=== PATIENT | male | born 1995 | race Caucasian/White ===

== ENCOUNTER 2017-11-12 21:03 | Emergency (ER) | payer SELFPAY ==
[2017-11-12] MEDS ORDERED: HYDROcod/ACET 5/325 Prepack 6 PO STA (21:23)
[2017-11-12] MEDS ORDERED: HYDROcod/ACETAM 5/325 MG TABLET PO STA (21:23)
--- NOTE | 2017-11-12 21:27 | ED Physician Documentation ---
History of Present Illness - Stated complaint Stated Complaint: BLOOD EAR/RINGING - Chief complaint Chief Complaint: Heent - History obtained from History obtained from: Patient, Family (mom) - History of Present Illness Timing: Other (He fell 5 days ago at a restaurant, slipped and twisted his ankle and then came down on his knee and his head on the sink going down. He was seen at a hospital in that area, [facility]. Per him he had an x- ray of his knee, ankle, and a CAT scan of his head with negative findings. He has persistent dizziness, confusion, headaches, and significant pain in the right leg. He was not prescribed any pain medication and is mostly requesting that.) Review of Systems Constitutional: denies: Fever, Chills Ears: reports: Drainage/discharge (With some blood a few days ago from the right ). denies: Ear pain Nose: denies: Rhinorrhea / runny nose, Congestion Throat: denies: Sore throat Cardiac: denies: Chest pain / pressure, Palpitations Respiratory: denies: Dyspnea, Cough PD PAST MEDICAL HISTORY - Past Medical History Past Medical History: No Cardiovascular: None Respiratory: None Neuro: None Endocrine/Autoimmune: None GI: None : None HEENT: None Psych: None Musculoskeletal: None Derm: None - Past Surgical History Past Surgical History: Yes General: Appendectomy - Present Medications Home Medications: Ambulatory Orders Medication Instructions Recorded Confirmed HYDROcod/ACETAM 5/325 [Mcbrides 5/325] 1 - 2 ea PO Q6H PRN #10 tablet 11/12/17 - Allergies Allergies/Adverse Reactions: Allergies Allergy/AdvReac Type Severity Reaction Status Date / Time No Known Drug Allergies Allergy Verified 11/12/17 21:11 - Social History Does the pt smoke?: Yes Smoking Status: Current every day smoker Does the pt drink ETOH?: No Does the pt have substance abuse?: No - Immunizations Immunizations are current?: Yes PD ED PE NORMAL - Vitals Vital signs reviewed: Yes - General General: Alert and oriented X 3, No acute distress - HEENT HEENT: PERRL, EOMI, Other (There is no abnormality of the eardrum on either side. There is some sequela of prior canal abrasion with a tiny little piece of clot in the inferior right canal. No evidence of recent or active bleeding.) - Neck Neck: Supple, no meningeal sign, No bony TTP - Cardiac Cardiac: RRR, No murmur - Respiratory Respiratory: No respiratory distress, Clear bilaterally - Abdomen Abdomen: Non tender - Extremities Extremities: Other (Knee on the right is nontender without effusion, he is tender over the ankle, but that was previously imaged. He also has tenderness over the fifth metatarsal on the right. Achilles function is normal.) - Neuro Neuro: Alert and oriented X 3, Normal speech - Psych Psych: Normal mood, Normal affect Results - Vitals Vitals: Vital Signs - 24 hr 11/12/17 21:08 Temperature 37.6 C H Heart Rate 51 L Respiratory 16 Rate Blood Pressure 126/77 O2 Saturation 100 Oxygen O2 Source Room air - Rads (name of study) 3v R foot Radiology: EMP read contemporaneously (normal) Departure - Departure Disposition: 01 Home, Self Care Clinical Impression: Right foot sprain Qualifiers: Encounter type: initial encounter Qualified Code(s): S93.601A - Unspecified sprain of right foot, initial encounter Concussion Qualifiers: Encounter type: initial encounter Loss of consciousness presence/duration: without LOC Qualified Code(s): S06.0X0A - Concussion without loss of consciousness, initial encounter Condition: Good Record reviewed to determine appropriate education?: Yes Instructions: ED Sprain Ankle W X Ray Prescriptions: HYDROcod/ACETAM 5/325 [Mcbrides 5/325] 1 - 2 ea PO Q6H PRN #10 tablet PRN Reason: Pain Comments: Call your doctor to arrange a follow-up appointment, make the next available appointment. In the interim, return anytime if worse or if new symptoms develop. Do not drink or drive while taking narcotic pain medication. Note that many narcotic pain relievers also contain Tylenol/acetaminophen. Please ensure that your total dose of acetaminophen from all sources does not exceed 3 g (3000 mg) per day. You may get constipated while on this medication. Take a stool softener such as Colace twice a day while you are on it. Also add an [id number] laxative such as senna or MiraLAX on any day that you do not have a bowel movement. If you received a narcotic pain medication or sedative while in the emergency department, do not drive for the next 24 hours.
--- NOTE | 2017-11-12 22:18 | XRAY Report ---
EXAM: RIGHT FOOT RADIOGRAPHY EXAM DATE: 11/12/2017 09:48 PM. CLINICAL HISTORY: Foot pain. Tripped and injured right foot 11/08. COMPARISON: None. TECHNIQUE: 3 views. FINDINGS: Bones: Normal. No fractures or bone lesions. Joints: Normal. No subluxations. Soft Tissues: Normal. No soft tissue swelling. IMPRESSION: Normal foot radiography. [facility] Referring Provider Line: [phone] SITE ID: [id number]
[2017-11-12 22:46] VITALS: BP 128/74
== END 2017-11-12 22:35 | disposition home or self-care (01) ==
LOC: ED 21:03
DX: S93.601A Unspecified sprain of right foot, initial encounter (principal); S06.0X0A Concussion without loss of consciousness, initial encounter; W01.198A Fall on same level from slipping, tripping and stumbling with subsequent striking against other object, initial encounter; Y92.511 Restaurant or cafe as the place of occurrence of the external cause; X50.9XXA Other and unspecified overexertion or strenuous movements or postures, initial encounter; F17.200 Nicotine dependence, unspecified, uncomplicated
CPT/HCPCS: 73630; 99283; 99284; A9270